=== PATIENT | male | born 1960 | race Caucasian/White ===

== ENCOUNTER 2018-02-28 13:47 | Inpatient (IN) ==
[2018-03-08] MEDS ORDERED: SODIUM CHLORIDE 0.9% 1,000 ML IV PRN (11:34)
[2018-03-08 12:28] LABS: Basophils # 0.1 10*3/uL (0.0-0.2); Basophils % 0.9 % (0.0-0.8); Eosinophils # 0.1 10*3/uL (0.0-0.87); Eosinophils % 1.6 % (0.00-10.9); Hematocrit 42.3 VOL% (42.0-52.0); Immature Granulocytes % 0.3 %; Immature Granulocytes Absolute 0.02 #; Lymphocytes # 2.4 10*3/uL (1.4-4.0); Lymphocytes % 36.6 % (21.2-54.2); Mean Corpuscular HGB Conc 33.1 GM/DL (32-36); Mean Corpuscular Hemoglobin 30 PG (27-34); Mean Platelet Volume 9.9 FL (9.6-12.0); Monocytes # 0.3 10*3/uL (0.11-0.8); Monocytes % 5.3 % (1.7-12.7); Neutrophils # 3.6 10*3/uL (1.4-7.4); Neutrophils % 55.3 % (38.7-73.9); Platelet Count 281 T/CUMM (130-400); Red Cell Distribution Width 12.6 % (9.3-17.3); White Blood Count 6.4 T/CUMM (4-12)
[2018-03-08 12:37] LABS: INR 0.9; PT Patient Result 9.8 SECS; Partial Thromboplastin Time 23.2 SECS (0-40)
[2018-03-08 12:57] LABS: Calcium 8.6 MG/DL (8.5-10.1); Osmolality,Calculated 280.4 MOS/KG (273-304); Potassium 4.2 MMOL/L (3.5-5.1)
[2018-03-08 13:16] LABS: Apearance,Urine CLEAR (Clear); Bilirubin,Urine Negative (Negative); Blood, Urine Negative (Negative); Glucose,Urine (UA) >=500 mg/dL (Negative); Hyaline Casts,Urine 2 /LPF (0-3); Ketones,Urine Negative (Negative); Mucus,Urine Occasional /LPF (Occasional); Nitrite,Urine Negative (Negative); Protein,Urine Negative; RBC,Urine 1 /HPF (0-4); Squamous Epithelial Cell,Urine Occasional /HPF (0-10); Urine Color Yellow (Yellow); Urine Specific Gravity 1.027 (1.001-1.035); Urine Urobilinogen < 2.0 EU/DL (0.2-1.0); WBC,Urine 7 /HPF (0-6)
[2018-03-09] MEDS ORDERED: PAPAVERINE 60 MG/2 ML VIAL ONE (05:22)
[2018-03-09] MEDS ORDERED: TISSUE ADHESIVE 1 EACH APPLICATOR TOP ONE (05:22)
[2018-03-09] MEDS ORDERED: VANCOMYCIN 1,000 MG VIAL ONE (05:23)
[2018-03-09] MEDS ORDERED: FAMOTIDINE 20 MG TABLET PO ONE (05:42)
[2018-03-09] MEDS ORDERED: DIAZEPAM 5 MG TABLET PO ONE (05:42)
[2018-03-09] MEDS ORDERED: FAMOTIDINE 20 MG TABLET ONE (06:06)
[2018-03-09] MEDS ORDERED: DIAZEPAM 5 MG TABLET ONE (06:06)
[2018-03-09] MEDS ORDERED: CEFUROXIME 1,500 MG VIAL ONE (06:06)
[2018-03-09] MEDS ORDERED: CEFUROXIME INJ 1,500 MG in SYRINGE 1 EACH IV ONE (06:30)
[2018-03-09] MEDS: LACTATED RINGERS 1,000 ML IV SCH (06:31)
[2018-03-09] MEDS ORDERED: ATROPINE 1 MG/10 ML SYRINGE ONE (07:17)
[2018-03-09] MEDS ORDERED: CALCIUM CHLORIDE 1,000 MG/10 ML SYRINGE IV ONE (07:17)
[2018-03-09] MEDS ORDERED: EPINEPHrine 1 MG/10 ML SYRINGE ONE (07:18)
[2018-03-09] MEDS ORDERED: ALBUMIN 5% 12.5 GM/250 ML VIAL IV ONE (07:19)
[2018-03-09 07:48] LABS: ABG Base Excess 0.5 MMOL/L (-2.5-2.5); ABG HCO3 24.9 MMOL/L (20-26); ABG Oxygen Saturation 99.8 % (95-100); ABG PCO2 37.4 MM HG (35-48); ABG PH 7.426 (7.35-7.45); ABG TCO2 21.6 MMOL/L (23-27); Glucose Heart Surgery 149 MG/DL (74-106); Hematocrit Heart Surgery 38.5 PERCENT (42-52); Hemoglobin Heart Surgery 12.5 G/DL (14.0-18.0); Ionized Calcium Arterial 1.15 MMOL/L (1.21-1.46); PCO2 Patient Temp Arterial 37.4 MMHG; PH Patient Temp Arterial 7.426; Patient Temperature 37 CELCIUS; Potassium Heart/CVR 3.8 MMOL/L (3.5-5.1); Sodium Heart/CVR 139 MMOL/L (135-145)
[2018-03-09 08:15] LABS: Apearance,Urine CLEAR (Clear); Bilirubin,Urine Negative (Negative); Blood, Urine Negative (Negative); Glucose,Urine (UA) Negative (Negative); Ketones,Urine Negative (Negative); Nitrite,Urine Negative (Negative); Protein,Urine Negative; RBC,Urine 1 /HPF (0-4); Urine Color Straw (Yellow); Urine Specific Gravity 1.012 (1.001-1.035); Urine Urobilinogen < 2.0 EU/DL (0.2-1.0); WBC,Urine <1 /HPF (0-6)
[2018-03-09] MEDS ORDERED: HEPARIN/NACL 0.9% 2 UNITS/ML 500 ML IV ONE (09:34)
[2018-03-09] MEDS ORDERED: NITROGLYCERIN DRIP 50 MG/250 ML BOTTLE IV ONE ×2 (09:35→11:28)
[2018-03-09] MEDS ORDERED: PHENYLEPHRINE 10 MG/1 ML VIAL IV ONE (09:35)
[2018-03-09 09:42] LABS: Hematocrit Heart Surgery 24.9 PERCENT (42-52); PCO2 Patient Temp Venous 35.8 MM HG; PH Patient Temp Venous 7.465; PO2 Patient Temp Venous 41.9 MM HG; Potassium Heart/CVR 4.9 MMOL/L (3.5-5.1); VBG Base Excess 2.2 MEQ/L (0-4); VBG HCO3 26.2 MEQ/L (24-28); VBG Oxygen Saturation 85.4 %; VBG PCO2 39.4 MMHG (41-51); VBG PH 7.436
[2018-03-09 10:12] LABS: Hematocrit Heart Surgery 27.2 PERCENT (42-52); Hemoglobin Heart Surgery 8.7 G/DL (14.0-18.0); PH Patient Temp Venous 7.476; PO2 Patient Temp Venous 45.1 MM HG; Potassium Heart/CVR 4.6 MMOL/L (3.5-5.1); VBG Base Excess 1.8 MEQ/L (0-4); VBG HCO3 25.8 MEQ/L (24-28); VBG Oxygen Saturation 84.2 %; VBG PH 7.476; VBG PO2 45.1 MMHG (17-40)
[2018-03-09] MEDS ORDERED: THROMBIN TOPICAL (RECOMBINANT) 5,000 UNIT VIAL TOP ONE (10:36)
[2018-03-09 10:51] LABS: ABG Base Excess -0.3 MMOL/L (-2.5-2.5); ABG HCO3 24.2 MMOL/L (20-26); ABG Oxygen Saturation 99.4 % (95-100); ABG PCO2 37.1 MM HG (35-48); ABG PH 7.417 (7.35-7.45); Glucose Heart Surgery 256 MG/DL (74-106); Hematocrit Heart Surgery 28.1 PERCENT (42-52); Hemoglobin Heart Surgery 9.1 G/DL (14.0-18.0); Ionized Calcium Arterial 1.28 MMOL/L (1.21-1.46); PCO2 Patient Temp Arterial 37.1 MMHG; PH Patient Temp Arterial 7.417; Patient Temperature 37 CELCIUS; Potassium Heart/CVR 3.7 MMOL/L (3.5-5.1); Sodium Heart/CVR 134 MMOL/L (135-145)
[2018-03-09] MEDS ORDERED: DEXTROSE 5% KCL 20 MEQ 20 MEQ/1,000 ML BAG IV ONE (10:59)
[2018-03-09] MEDS ORDERED: ALBUMIN 25% 25 GM/100 ML VIAL IV ONE (10:59)
[2018-03-09] MEDS ORDERED: MAGNESIUM SULFATE 1 GM/2 ML VIAL ONE (10:59)
[2018-03-09] MEDS ORDERED: PROTAMINE SULFATE 250 MG/25 ML VIAL IV ONE (10:59)
[2018-03-09] MEDS ORDERED: SODIUM BICARBONATE 50 MEQ/50 ML SYRINGE IV ONE (10:59)
[2018-03-09] MEDS ORDERED: methylPREDNISolone SOD SUC 1,000 MG/8 ML VIAL ONE (11:00)
[2018-03-09] MEDS ORDERED: MANNITOL 12.5 GM/50 ML VIAL IV ONE (11:00)
[2018-03-09] MEDS ORDERED: PROTAMINE SULFATE 50 MG/5 ML VIAL IV ONE (11:00)
[2018-03-09] MEDS ORDERED: HEPARIN 10,000 UNIT/10 ML VIAL ONE (11:00)
[2018-03-09] MEDS ORDERED: FUROSEMIDE 20 MG/2 ML VIAL ONE (11:00)
[2018-03-09] MEDS ORDERED: NITROGLYCERIN DRIP 50 MG/250 ML BOTTLE IV PRN (11:40)
[2018-03-09] MEDS ORDERED: INSULIN REGULAR 100 UNIT/ML IV PRN (11:43)
[2018-03-09] MEDS ORDERED: MIDAZOLAM 2 MG/2 ML VIAL IV PRN (11:43)
[2018-03-09] MEDS ORDERED: CHLORHEXIDINE 4% SOLN 118 ML BOTTLE TOP PRN (11:43)
[2018-03-09] MEDS ORDERED: DEXTROSE 50% 25 GM/50 ML VIAL IV PRN ×2 (11:43)
[2018-03-09] MEDS ORDERED: CALCIUM CHLORIDE 1,000 MG/10 ML SYRINGE IV PRN (11:43)
[2018-03-09] MEDS ORDERED: SODIUM CHLORIDE 0.9% 250 ML IV PRN (11:43)
[2018-03-09] MEDS ORDERED: MAGNESIUM SULF RIDER 4 GM in PREMIX 1 EACH IV PRN (11:43)
[2018-03-09] MEDS ORDERED: ACETAMINOPHEN 650 MG SUPP RECTAL PRN (11:43)
[2018-03-09] MEDS ORDERED: MAGNESIUM SULF RIDER 2 GM in PREMIX 1 EACH IV PRN (11:43)
[2018-03-09] MEDS ORDERED: ONDANSETRON 4 MG/2 ML VIAL IV PRN (11:43)
[2018-03-09] MEDS: SODIUM CHLORIDE 0.45% 1,000 ML IV SCH ×3 (11:45→23:09)
[2018-03-09 12:05] LABS: HIV Antigen/Antibody Result Nonreactive (Nonreactive); Hepatitis B Surface Ab Result Negative; Hepatitis B Surface Ag Quant < 0.10 Index; Hepatitis B Surface Ag Result Negative (Negative); Hepatitis C Virus Ab Quant 0.02 Index; Hepatitis C Virus Ab Result Negative (Negative)
[2018-03-09 12:10] LABS: ABG Base Excess 0.4 MMOL/L (-2.5-2.5); ABG HCO3 24.7 MMOL/L (20-26); ABG Oxygen Saturation 96.4 % (95-100); ABG PCO2 40.4 MM HG (35-48); ABG PH 7.402 (7.35-7.45); ABG PO2 84.1 MM HG (80-95); ABG TCO2 22.7 MMOL/L (23-27); Glucose Heart Surgery 229 MG/DL (74-106); Hematocrit Heart Surgery 32.3 PERCENT (42-52); Hemoglobin Heart Surgery 10.5 G/DL (14.0-18.0); Potassium Heart/CVR 3.7 MMOL/L (3.5-5.1)
[2018-03-09 12:11] LABS: Basophils # 0.1 10*3/uL (0.0-0.2); Basophils % 0.5 % (0.0-0.8); Eosinophils # 0.1 10*3/uL (0.0-0.87); Eosinophils % 0.4 % (0.00-10.9); Hematocrit 30.5 VOL% (42.0-52.0); Hemoglobin 10.4 GM/DL (14.0-18.0); Immature Granulocytes % 1.3 %; Immature Granulocytes Absolute 0.17 #; Lymphocytes # 1.5 10*3/uL (1.4-4.0); Mean Corpuscular HGB Conc 34.1 GM/DL (32-36); Mean Corpuscular Hemoglobin 31 PG (27-34); Mean Corpuscular Volume 89.4 FL (87-102); Mean Platelet Volume 10.1 FL (9.6-12.0); Monocytes # 0.5 10*3/uL (0.11-0.8); Monocytes % 4.1 % (1.7-12.7); Neutrophils # 10.5 10*3/uL (1.4-7.4); Neutrophils % 81.7 % (38.7-73.9); Platelet Count 212 T/CUMM (130-400); Red Blood Count 3.41 MC/CUMM (3.8-5.5); Red Cell Distribution Width 12.7 % (9.3-17.3); White Blood Count 12.8 T/CUMM (4-12)
[2018-03-09] MEDS ORDERED: INSULIN REGULAR DRIP 100 ML IV PRN (12:17)
[2018-03-09 12:27] LABS: PT Patient Result 10.8 SECS; Partial Thromboplastin Time 24.4 SECS (0-40)
[2018-03-09] MEDS ORDERED: SEVOFLURANE 1 UNIT/15 MINUTE INH ONE (12:30)
[2018-03-09] MEDS ORDERED: CALCIUM CHLORIDE 1,000 MG/10 ML VIAL IV ONE (12:30)
[2018-03-09] MEDS ORDERED: ETOMIDATE 40 MG/20 ML VIAL IV ONE (12:31)
[2018-03-09] MEDS ORDERED: SODIUM CHLORIDE 0.9% 100 ML IV ONE (12:31)
[2018-03-09] MEDS ORDERED: SODIUM CHLORIDE 0.9% 1,000 ML IV ONE (12:31)
[2018-03-09] MEDS ORDERED: METOPROLOL TARTRATE 5 MG/5 ML VIAL IV ONE ×3 (12:31→16:34)
[2018-03-09] MEDS ORDERED: MIDAZOLAM 10 MG/2 ML VIAL ONE ×2 (12:31)
[2018-03-09] MEDS ORDERED: VECURONIUM 10 MG VIAL IV ONE (12:31)
[2018-03-09] MEDS ORDERED: LACTATED RINGERS 1,000 ML IV ONE (12:31)
[2018-03-09] MEDS ORDERED: TRANEXAMIC ACID 1,000 MG/10 ML VIAL ONE (12:31)
[2018-03-09] MEDS ORDERED: SODIUM CHLORIDE 0.9% 500 ML IV ONE (12:31)
[2018-03-09 12:34] LABS: Lactic Acid 3.5 MMOL/L (0.4-2.0)
[2018-03-09] MEDS: POTASSIUM CHLORIDE RIDER 20 MEQ in PREMIX 1 EACH IV PRN ×2 (12:34→16:28)
[2018-03-09 12:50] LABS: Blood Urea Nitrogen 9 MG/DL (7-18); Calcium 7.7 MG/DL (8.5-10.1); Glucose 212 MG/DL (74-106); Osmolality,Calculated 281.5 MOS/KG (273-304); Potassium 3.9 MMOL/L (3.5-5.1); Sodium 139 MMOL/L (136-145)
[2018-03-09] MEDS: MORPHINE 4 MG/1 ML VIAL IV PRN ×2 (13:00→21:00)
[2018-03-09] MEDS ORDERED: ASPIRIN 325 MG TABLET NG ONE (13:00)
[2018-03-09] MEDS: POTASSIUM CHLORIDE RIDER 10 MEQ in PREMIX 1 EACH IV PRN (13:13)
[2018-03-09] MEDS: MORPHINE 10 MG/1 ML VIAL IV PRN ×3 (13:52→18:18)
[2018-03-09] MEDS: KETOROLAC 30 MG/1 ML VIAL IV PRN ×2 (14:31→19:30)
[2018-03-09 15:35] LABS: ABG Base Excess -0.8 MMOL/L (-2.5-2.5); ABG HCO3 24.5 MMOL/L (20-26); ABG Oxygen Saturation 97.5 % (95-100); ABG PH 7.373 (7.35-7.45); ABG PO2 112.8 MM HG (80-95); ABG TCO2 25.8 MMOL/L (23-27); Glucose Heart Surgery 231 MG/DL (74-106); Potassium Heart/CVR 3.7 MMOL/L (3.5-5.1)
[2018-03-09 16:29] LABS: ABG Base Excess -2.2 MMOL/L (-2.5-2.5); ABG HCO3 22.5 MMOL/L (20-26); ABG Oxygen Saturation 92.9 % (95-100); ABG PCO2 49.3 MM HG (35-48); ABG PH 7.307 (7.35-7.45); ABG PO2 73.9 MM HG (80-95); ABG TCO2 22.1 MMOL/L (23-27); Glucose Heart Surgery 224 MG/DL (74-106); Hematocrit Heart Surgery 36.4 PERCENT (42-52); Hemoglobin Heart Surgery 11.8 G/DL (14.0-18.0); Potassium Heart/CVR 3.6 MMOL/L (3.5-5.1)
[2018-03-09] MEDS ORDERED: HYDROmorphone 2 MG/1 ML VIAL IV ONE (17:20)
[2018-03-09] MEDS: ALBUMIN 5% 12.5 GM in PREMIX 1 EACH IV PRN ×2 (19:39→20:07)
[2018-03-09] MEDS: CEFUROXIME INJ 1,500 MG in SYRINGE 1 EACH IV SCH (19:40)
[2018-03-09] MEDS: CHLORHEXIDINE 0.12% ORAL RINSE 60 ML BOTTLE SWISH/SPIT SCH (21:00)
[2018-03-10] MEDS: KETOROLAC 30 MG/1 ML VIAL IV PRN ×2 (00:24→05:33)
[2018-03-10] MEDS: MORPHINE 4 MG/1 ML VIAL IV PRN ×4 (01:01→23:42)
[2018-03-10 03:35] LABS: Basophils % 0.1 % (0.0-0.8); Hemoglobin 9.6 GM/DL (14.0-18.0); Immature Granulocytes % 0.6 %; Immature Granulocytes Absolute 0.11 #; Lymphocytes # 0.8 10*3/uL (1.4-4.0); Lymphocytes % 4.3 % (21.2-54.2); Mean Corpuscular HGB Conc 34.3 GM/DL (32-36); Mean Corpuscular Hemoglobin 30 PG (27-34); Mean Corpuscular Volume 88.6 FL (87-102); Mean Platelet Volume 10.7 FL (9.6-12.0); Monocytes # 0.9 10*3/uL (0.11-0.8); Monocytes % 4.8 % (1.7-12.7); Neutrophils # 16.2 10*3/uL (1.4-7.4); Neutrophils % 90.2 % (38.7-73.9); Platelet Count 215 T/CUMM (130-400); Red Blood Count 3.16 MC/CUMM (3.8-5.5); Red Cell Distribution Width 12.6 % (9.3-17.3)
[2018-03-10 03:56] LABS: Osmolality,Calculated 279.5 MOS/KG (273-304); Potassium 4.2 MMOL/L (3.5-5.1)
[2018-03-10 04:01] LABS: Band Neutrophils 3 % (0-10); Lymphocytes 4 % (20-55); Platelet Estimate Normal; Segmented Neutrophils 90 % (50-85); Total Cells Counted 100
[2018-03-10] MEDS: SODIUM CHLORIDE 0.45% 1,000 ML IV SCH ×2 (06:07→08:34)
[2018-03-10] MEDS: LACTATED RINGERS 1,000 ML IV SCH (07:07)
[2018-03-10] MEDS: INSULIN REGULAR 100 UNIT/ML SUBCUT SCH ×4 (08:34→22:21)
[2018-03-10] MEDS: CEFUROXIME INJ 1,500 MG in SYRINGE 1 EACH IV SCH ×2 (08:35→22:24)
[2018-03-10] MEDS: ASPIRIN EC 325 MG TABLET PO SCH (08:36)
[2018-03-10] MEDS: FUROSEMIDE 40 MG TABLET PO SCH (08:36)
[2018-03-10] MEDS: CARVEDILOL 3.125 MG TABLET PO SCH ×2 (08:36→22:22)
[2018-03-10] MEDS: CHLORHEXIDINE 0.12% ORAL RINSE 60 ML BOTTLE SWISH/SPIT SCH ×2 (08:36→22:22)
[2018-03-10] MEDS ORDERED: CLOPIDOGREL 75 MG TABLET PO SCH (09:00)
[2018-03-10] MEDS: PANTOPRAZOLE 40 MG VIAL IV SCH (11:14)
[2018-03-10] MEDS: MORPHINE 10 MG/1 ML VIAL IV PRN (16:36)
[2018-03-10] MEDS: ATORVASTATIN 40 MG TABLET PO SCH (22:22)
[2018-03-10] MEDS ORDERED: CEFUROXIME INJ 1,500 MG in SYRINGE 1 EACH IV SCH (22:30)
[2018-03-11] MEDS: MORPHINE 4 MG/1 ML VIAL IV PRN ×3 (02:03→15:00)
[2018-03-11 06:54] LABS: Basophils % 0.1 % (0.0-0.8); Hematocrit 28.8 VOL% (42.0-52.0); Immature Granulocytes % 1.1 %; Immature Granulocytes Absolute 0.25 #; Lymphocytes % 4.7 % (21.2-54.2); Mean Corpuscular HGB Conc 34.7 GM/DL (32-36); Mean Corpuscular Hemoglobin 31 PG (27-34); Mean Corpuscular Volume 88.3 FL (87-102); Mean Platelet Volume 10.9 FL (9.6-12.0); Monocytes # 1.3 10*3/uL (0.11-0.8); Monocytes % 5.7 % (1.7-12.7); Neutrophils # 19.5 10*3/uL (1.4-7.4); Neutrophils % 88.4 % (38.7-73.9); Platelet Count 242 T/CUMM (130-400); Red Blood Count 3.26 MC/CUMM (3.8-5.5); Red Cell Distribution Width 12.9 % (9.3-17.3)
[2018-03-11 07:17] LABS: Calcium 8.4 MG/DL (8.5-10.1); Osmolality,Calculated 280.8 MOS/KG (273-304); Potassium 4.3 MMOL/L (3.5-5.1)
[2018-03-11 07:36] LABS: Hypochromasia 1+; Lymphocytes 2 % (20-55); Platelet Estimate Adequate; Segmented Neutrophils 93 % (50-85); Total Cells Counted 100
[2018-03-11 07:37] LABS: Ovalocytes Slight
[2018-03-11] MEDS: ASPIRIN EC 325 MG TABLET PO SCH (10:02)
[2018-03-11] MEDS: FUROSEMIDE 40 MG TABLET PO SCH (10:02)
[2018-03-11] MEDS: CHLORHEXIDINE 0.12% ORAL RINSE 60 ML BOTTLE SWISH/SPIT SCH ×2 (10:02→21:48)
[2018-03-11] MEDS: CARVEDILOL 3.125 MG TABLET PO SCH ×2 (10:02→21:48)
[2018-03-11] MEDS: INSULIN REGULAR 100 UNIT/ML SUBCUT SCH ×4 (10:02→21:48)
[2018-03-11] MEDS: PANTOPRAZOLE 40 MG VIAL IV SCH (10:02)
[2018-03-11] MEDS: ATORVASTATIN 40 MG TABLET PO SCH (21:48)
[2018-03-12 05:39] LABS: Basophils % 0.1 % (0.0-0.8); Eosinophils % 0.1 % (0.00-10.9); Hematocrit 30.3 VOL% (42.0-52.0); Hemoglobin 10.4 GM/DL (14.0-18.0); Immature Granulocytes % 0.6 %; Immature Granulocytes Absolute 0.09 #; Lymphocytes % 20.3 % (21.2-54.2); Mean Corpuscular HGB Conc 34.3 GM/DL (32-36); Mean Corpuscular Hemoglobin 30 PG (27-34); Mean Corpuscular Volume 87.6 FL (87-102); Mean Platelet Volume 11.1 FL (9.6-12.0); Monocytes # 1.2 10*3/uL (0.11-0.8); Monocytes % 8.2 % (1.7-12.7); Neutrophils # 10.3 10*3/uL (1.4-7.4); Neutrophils % 70.7 % (38.7-73.9); Platelet Count 240 T/CUMM (130-400); Red Blood Count 3.46 MC/CUMM (3.8-5.5); Red Cell Distribution Width 12.5 % (9.3-17.3); White Blood Count 14.5 T/CUMM (4-12)
[2018-03-12 06:05] LABS: Calcium 8.5 MG/DL (8.5-10.1); Osmolality,Calculated 282.7 MOS/KG (273-304); Potassium 3.4 MMOL/L (3.5-5.1)
[2018-03-12] MEDS: FUROSEMIDE 40 MG TABLET PO SCH (09:29)
[2018-03-12] MEDS: ASPIRIN EC 325 MG TABLET PO SCH (09:29)
[2018-03-12] MEDS: INSULIN REGULAR 100 UNIT/ML SUBCUT SCH ×4 (09:29→23:33)
[2018-03-12] MEDS: PANTOPRAZOLE 40 MG VIAL IV SCH (09:29)
[2018-03-12] MEDS: CHLORHEXIDINE 0.12% ORAL RINSE 60 ML BOTTLE SWISH/SPIT SCH ×2 (09:29→20:56)
[2018-03-12] MEDS: CARVEDILOL 3.125 MG TABLET PO SCH ×2 (09:29→20:54)
[2018-03-12] MEDS: POTASSIUM CHLORIDE RIDER 20 MEQ in PREMIX 1 EACH IV PRN ×2 (14:12→16:25)
[2018-03-12] MEDS: ATORVASTATIN 40 MG TABLET PO SCH (20:54)
[2018-03-13] MEDS ORDERED: BISACODYL 5 MG TABLET PO PRN (09:39)
[2018-03-13] MEDS: ASPIRIN EC 325 MG TABLET PO SCH (09:45)
[2018-03-13] MEDS: INSULIN REGULAR 100 UNIT/ML SUBCUT SCH ×4 (09:45→23:24)
[2018-03-13] MEDS: CHLORHEXIDINE 0.12% ORAL RINSE 60 ML BOTTLE SWISH/SPIT SCH ×2 (09:45→21:51)
[2018-03-13] MEDS: FUROSEMIDE 40 MG TABLET PO SCH (09:45)
[2018-03-13] MEDS: PANTOPRAZOLE 40 MG VIAL IV SCH (09:45)
[2018-03-13] MEDS: CARVEDILOL 3.125 MG TABLET PO SCH ×2 (09:45→21:49)
[2018-03-13] MEDS: DOCUSATE SODIUM 100 MG CAPSULE PO SCH (10:08)
[2018-03-13] MEDS: POTASSIUM CHLORIDE RIDER 20 MEQ in PREMIX 1 EACH IV PRN (11:57)
[2018-03-13] MEDS: POTASSIUM CHLORIDE RIDER 10 MEQ in PREMIX 1 EACH IV PRN (14:30)
[2018-03-13] MEDS: ATORVASTATIN 40 MG TABLET PO SCH (21:49)
[2018-03-14] MEDS: INSULIN REGULAR 100 UNIT/ML SUBCUT SCH ×4 (07:48→20:48)
[2018-03-14] MEDS ORDERED: BISACODYL 10 MG SUPP RECTAL ONE (08:16)
[2018-03-14] MEDS ORDERED: LACTATED RINGERS 500 ML IV ONE (08:16)
[2018-03-14 08:42] LABS: Basophils # 0.1 10*3/uL (0.0-0.2); Basophils % 0.4 % (0.0-0.8); Eosinophils # 0.1 10*3/uL (0.0-0.87); Eosinophils % 0.9 % (0.00-10.9); Hematocrit 34.7 VOL% (42.0-52.0); Hemoglobin 12.2 GM/DL (14.0-18.0); Immature Granulocytes % 0.9 %; Immature Granulocytes Absolute 0.11 #; Lymphocytes # 3.3 10*3/uL (1.4-4.0); Lymphocytes % 26.4 % (21.2-54.2); Mean Corpuscular HGB Conc 35.2 GM/DL (32-36); Mean Corpuscular Hemoglobin 31 PG (27-34); Mean Corpuscular Volume 87.4 FL (87-102); Mean Platelet Volume 10.9 FL (9.6-12.0); Monocytes # 0.9 10*3/uL (0.11-0.8); Monocytes % 6.7 % (1.7-12.7); Neutrophils # 8.2 10*3/uL (1.4-7.4); Neutrophils % 64.7 % (38.7-73.9); Platelet Count 330 T/CUMM (130-400); Red Blood Count 3.97 MC/CUMM (3.8-5.5); Red Cell Distribution Width 12.2 % (9.3-17.3); White Blood Count 12.7 T/CUMM (4-12)
[2018-03-14] MEDS: PANTOPRAZOLE 40 MG VIAL IV SCH (08:54)
[2018-03-14] MEDS: ASPIRIN EC 325 MG TABLET PO SCH (08:54)
[2018-03-14] MEDS: FUROSEMIDE 40 MG TABLET PO SCH (08:54)
[2018-03-14] MEDS: CARVEDILOL 3.125 MG TABLET PO SCH ×2 (08:54→20:45)
[2018-03-14] MEDS: DOCUSATE SODIUM 100 MG CAPSULE PO SCH (08:54)
[2018-03-14 09:07] LABS: Calcium 8.9 MG/DL (8.5-10.1); Osmolality,Calculated 280.1 MOS/KG (273-304); Potassium 4.3 MMOL/L (3.5-5.1)
[2018-03-14] MEDS: CHLORHEXIDINE 0.12% ORAL RINSE 60 ML BOTTLE SWISH/SPIT SCH ×2 (10:00→20:46)
[2018-03-14] MEDS: LACTATED RINGERS 1,000 ML IV SCH (17:49)
[2018-03-14] MEDS: ATORVASTATIN 40 MG TABLET PO SCH (20:45)
[2018-03-15] MEDS: LACTATED RINGERS 1,000 ML IV SCH ×2 (01:56→10:42)
[2018-03-15 08:12] LABS: Basophils % 0.2 % (0.0-0.8); Eosinophils # 0.1 10*3/uL (0.0-0.87); Eosinophils % 0.8 % (0.00-10.9); Hematocrit 30.1 VOL% (42.0-52.0); Hemoglobin 10.3 GM/DL (14.0-18.0); Immature Granulocytes % 0.7 %; Immature Granulocytes Absolute 0.09 #; Lymphocytes % 24.6 % (21.2-54.2); Mean Corpuscular HGB Conc 34.2 GM/DL (32-36); Mean Corpuscular Hemoglobin 30 PG (27-34); Mean Corpuscular Volume 87.2 FL (87-102); Monocytes # 0.9 10*3/uL (0.11-0.8); Monocytes % 7.7 % (1.7-12.7); Platelet Count 245 T/CUMM (130-400); Red Blood Count 3.45 MC/CUMM (3.8-5.5); Red Cell Distribution Width 12.3 % (9.3-17.3); White Blood Count 12.1 T/CUMM (4-12)
[2018-03-15 08:33] LABS: Hypochromasia 1+; Ovalocytes Slight; Platelet Estimate Adequate
[2018-03-15 08:44] LABS: Calcium 8.5 MG/DL (8.5-10.1); Potassium 4.2 MMOL/L (3.5-5.1)
[2018-03-15] MEDS: FUROSEMIDE 40 MG TABLET PO SCH (08:55)
[2018-03-15] MEDS: ASPIRIN EC 325 MG TABLET PO SCH (08:55)
[2018-03-15] MEDS: INSULIN REGULAR 100 UNIT/ML SUBCUT SCH ×4 (08:55→21:01)
[2018-03-15] MEDS: DOCUSATE SODIUM 100 MG CAPSULE PO SCH (08:55)
[2018-03-15] MEDS: PANTOPRAZOLE 40 MG VIAL IV SCH (08:56)
[2018-03-15] MEDS: CHLORHEXIDINE 0.12% ORAL RINSE 60 ML BOTTLE SWISH/SPIT SCH ×2 (08:58→21:04)
[2018-03-15] MEDS ORDERED: DEXTROSE 50% 25 GM/50 ML VIAL IV PRN (10:45)
[2018-03-15] MEDS ORDERED: GLUCAGON 1 MG VIAL IM PRN (10:45)
[2018-03-15] MEDS: ATORVASTATIN 40 MG TABLET PO SCH (21:04)
[2018-03-16] MEDS: CHLORHEXIDINE 0.12% ORAL RINSE 60 ML BOTTLE SWISH/SPIT SCH (09:14)
[2018-03-16] MEDS: ASPIRIN EC 325 MG TABLET PO SCH (09:14)
[2018-03-16] MEDS: PANTOPRAZOLE 40 MG VIAL IV SCH (09:14)
[2018-03-16] MEDS: DOCUSATE SODIUM 100 MG CAPSULE PO SCH (09:14)
[2018-03-16] MEDS: INSULIN REGULAR 100 UNIT/ML SUBCUT SCH ×2 (09:14→14:31)
[2018-03-16] MEDS: FUROSEMIDE 40 MG TABLET PO SCH (09:14)
[2018-03-16 11:53] VITALS: BP 105/62
== END 2018-03-16 15:49 | disposition home health service (06) | DRG 236 ==
LOC: N.SDSINP 03-09 05:21 → N.CVR 03-09 09:31 → N.TELES 03-10 10:23
PROVIDERS: ADMIT Thoracic Surgery (Cardiothoracic Vascular Surgery); ATTEND Thoracic Surgery (Cardiothoracic Vascular Surgery)